=== PATIENT | male | born 1965 | race Caucasian/White ===

== ENCOUNTER 2021-04-06 09:37 | Inpatient (IN) | payer BC, OTHER ==
[~2021-04-06] VITALS: Ht 175.3 cm; Wt 127.6 kg
[2021-04-06] MEDS ORDERED: IPRATRPIUM/ALBUTEROL 0.5/2.5MG 3 ML NEBU. NEB ONE ×2 (10:00→16:30)
[2021-04-06] MEDS ORDERED: methylPREDNISolone SOD SUCC PF 125 MG/2 ML VIAL. IV ONE (10:00)
[2021-04-06 10:31] LABS: CALCIUM 7.7 mg/dL (8.5-10.1); CREATININE 1.4 mg/dL (0.7-1.3); GFR 52.8; POTASSIUM 4.9 mmol/L (3.5-5.1)
--- NOTE | 2021-04-06 10:32 | RAD ---
EXAM: Chest, single view. HISTORY: Shortness of breath. Cough. COMPARISON: None. FINDINGS: A frontal view of the chest is obtained. There is multifocal interstitial infiltrate. There are suspected trace pleural effusions. There is no pneumothorax. The heart is normal in size. IMPRESSION: Multifocal interstitial infiltrate and suspected trace pleural effusions. Electronically signed by: Liya Lizarraga MD (04/06/2021 10:30 AM) [id number]
[2021-04-06 10:33] LABS: BASO % 0 % (0-3); EOS % 0 % (0-3); HEMATOCRIT 46.5 % (39.0-53.0); HEMOGLOBIN 15.8 g/dL (13.0-17.5); LYMPH # 0.8 x10^3/uL (1.0-4.8); LYMPH % 15 % (24-48); MEAN CORPUSCULAR HEMOGLOBIN 29 pg (25-35); MEAN CORPUSCULAR HGB CONC 34 g/dL (31-37); MEAN CORPUSCULAR VOLUME 85 fL (79-100); MONO # 0.4 x10^3/uL (0.0-1.1); MONO % 7 % (0-9); NEUT # 4.4 x10^3uL (1.8-7.7); NEUT % 78 % (31-73); PLATELET COUNT 238 x10^3/uL (140-400); RED BLOOD COUNT 5.45 x10^6/uL (4.30-5.70); RED CELL DISTRIBUTION WIDTH 14.8 % (11.5-14.5); WHITE BLOOD COUNT 5.6 x10^3/uL (4.0-11.0)
[2021-04-06 10:37] LABS: ALBUMIN/GLOBULIN RATIO 0.8 (1.0-1.7); TOTAL BILIRUBIN 0.7 mg/dL (0.2-1.0); TOTAL PROTEIN 6.8 g/dL (6.4-8.2)
--- NOTE | 2021-04-06 10:50 | PHYS DOC ---
Past History Past Surgical History: No Surgical History Alcohol Use: None Adult General Chief Complaint Chief Complaint: SHORTNESS OF BREATH HPI HPI Patient is a 55-year-old male presenting via EMS for shortness of breath. Reports onset was 9 days ago without any known inciting event, sick contacts or recent travel. Cites initial upper respiratory symptoms such as rhinorrhea and postnasal drip that turned into a cough with increased wheezing and inability to catch his breath. Went into his primary care provider's office today and was found to be at 79% on room air prompting EMS to be called and patient transferred over to our facility. States he has poor follow-up in outpatient setting with primary care, as a result he has not been there in quite years". Has no known medical issues, does not take any meds, denies smoking alcohol or illicit drug use. No known history of cardiac disease or significant family medical issues. He is unvaccinated against COVID-19 Review of Systems Review of Systems Fourteen body systems of review of systems have been reviewed. See HPI for pertinent positives and negative responses, other stewart all other systems are negative, non-pertinent or non-contributory Current Medications Current Medications Current Medications Medications (Trade) Dose Ordered Sig/Nola Start Time Stop Time Status Last Admin Dose Admin Albuterol/ Ipratropium (Duoneb) 3 ml 1X ONCE 04/06/21 10:00 04/06/21 10:01 DC 04/06/21 10:20 3 ML Methylprednisolone Sodium Succinate (SOLU-Medrol 125MG VIAL) 125 mg 1X ONCE 04/06/21 10:00 04/06/21 10:01 DC Allergies Allergies Allergies Coded Allergies Type Severity Reaction Last Updated Verified cat dander Allergy Unknown 04/06/21 Yes Physical Exam Physical Exam Constitutional: Age-appropriate in respiratory distress on arrival, appears disheveled HENT: Normocephalic, atraumatic, bilateral external ears normal, oropharynx dry, no oral exudates, nose normal. Eyes: PERRLA, EOMI, conjunctiva normal, no discharge. Neck: Normal range of motion, no tenderness, supple, no stridor. Cardiovascular: Heart rate tachycardic sinus rhythm, no murmurs rubs or gallops Lungs & Thorax: In acute respiratory distress with increased accessory muscle use of neck and abdomen noted with mild abdominal retractions, O2 saturation less than 90% on 6 L oxygen via nasal cannula Abdomen: Bowel sounds normal, soft, no tenderness, no masses, no pulsatile masses. Nonsurgical abdomen, no peritoneal signs Skin: Warm, dry, no erythema, no rash. Back: No tenderness, no CVA tenderness. Extremities: No tenderness, no cyanosis, no clubbing, ROM intact, no edema. Neurologic: Alert and oriented X 3, grossly normal motor & sensory function, no focal deficits noted. Psychologic: Anxious affect and mood Current Patient Data Vital Signs Vital Signs Date Time Temp Pulse Resp B/P (MAP) Pulse Ox O2 Delivery O2 Flow Rate FiO2 04/06/21 10:21 93 NonRebreather Mask 15.0 04/06/21 09:40 98.3 114 20 127/54 Lab Results Laboratory Tests Test 04/06/21 09:55 White Blood Count 5.6 x10^3/uL (4.0-11.0) Red Blood Count 5.45 x10^6/uL (4.30-5.70) Hemoglobin 15.8 g/dL (13.0-17.5) Hematocrit 46.5 % (39.0-53.0) Mean Corpuscular Volume 85 fL (79-100) Mean Corpuscular Hemoglobin 29 pg (25-35) Mean Corpuscular Hemoglobin Concent 34 g/dL (31-37) Red Cell Distribution Width 14.8 % (11.5-14.5) H Platelet Count 238 x10^3/uL (140-400) Neutrophils (%) (Auto) 78 % (31-73) H Lymphocytes (%) (Auto) 15 % (24-48) L Monocytes (%) (Auto) 7 % (0-9) Eosinophils (%) (Auto) 0 % (0-3) Basophils (%) (Auto) 0 % (0-3) Neutrophils # (Auto) 4.4 x10^3uL (1.8-7.7) Lymphocytes # (Auto) 0.8 x10^3/uL (1.0-4.8) L Monocytes # (Auto) 0.4 x10^3/uL (0.0-1.1) Eosinophils # (Auto) 0.0 x10^3/uL (0.0-0.7) Basophils # (Auto) 0.0 x10^3/uL (0.0-0.2) POC Venous pH 7.42 (7.32-7.42) POC Venous pCO2 35 mmHg (41-51) L POC Venous pO2 33 mmHg (20-40) Venous Blood HCO3 23 mmol/L (24-28) L POC Venous O2 Saturation (Pete) 65 % POC FiO2 80 Sodium Level 132 mmol/L (136-145) L Potassium Level 4.9 mmol/L (3.5-5.1) Chloride Level 99 mmol/L (98-107) Carbon Dioxide Level 21 mmol/L (21-32) Anion Gap 12 (6-14) Blood Urea Nitrogen 32 mg/dL (8-26) H Creatinine 1.4 mg/dL (0.7-1.3) H Estimated GFR (Cockcroft-Gault) 52.8 BUN/Creatinine Ratio 23 (6-20) H Glucose Level 111 mg/dL (70-99) H Calcium Level 7.7 mg/dL (8.5-10.1) L Total Bilirubin 0.7 mg/dL (0.2-1.0) Aspartate Amino Transferase (AST) 111 U/L (15-37) H Alanine Aminotransferase (ALT) 65 U/L (16-63) H Alkaline Phosphatase 55 U/L (46-116) Troponin I Quantitative < 0.017 ng/mL (0-0.055) Total Protein 6.8 g/dL (6.4-8.2) Albumin 3.0 g/dL (3.4-5.0) L Albumin/Globulin Ratio 0.8 (1.0-1.7) L EKG EKG EKG ordered and interpreted by myself 1010 hrs. as sinus tachycardia at 115 bpm, unremarkable intervals, left axis deviation, no STEMI Radiology/Procedures Radiology/Procedures EXAM: Chest, single view. HISTORY: Shortness of breath. Cough. COMPARISON: None. FINDINGS: A frontal view of the chest is obtained. There is multifocal interstitial infiltrate. There are suspected trace pleural effusions. There is no pneumothorax. The heart is normal in size. IMPRESSION: Multifocal interstitial infiltrate and suspected trace pleural effusions. Electronically signed by: Liya Lizarraga MD (04/06/2021 10:30 AM) [id number] Heart Score C/O Chest Pain: No HEART Score for Chest Pain: HEART Score for Chest Pain Response (Comments) Value History Moderately Suspicious 1 ECG Nonspecific Repolarizatio 1 Age >45 - < 65 1 Risk Factors 1 or 2 Risk Factors 1 Troponin < Normal Limit 0 Total 4 Risk Factors: Risk Factors: DM, Current or recent (<one month) smoker, HTN, HLP, family history of CAD, obesity. Risk Scores: Risk Factors: DM, Current or recent (<one month) smoker, HTN, HLP, family h istory of CAD, obesity. Course & Med Decision Making Course & Med Decision Making Airway patent, breathing labored in no acute respiratory distress, IV access and vitals obtained concerning for tachycardia and persistent hypoxia despite supplemental oxygen via nasal cannula Patient placed on nonrebreather with immediate improvement in respiratory sy mptoms. 125 mg Solu-Medrol and DuoNeb treatment administered Comprehensive ER work-up obtained concerning for multifocal pneumonia, I am concerned as patient is unvaccinated against COVID-19 and current pandemic, patient swabbed with results pending. IV azithromycin and Rocephin administered I contacted patient's primary care provider who will also serve as hospitalist, discussed need for hospital admission and patient was excepted. Updated patient on proposed plan of care and he was amenable for admission. All questions and concerns addressed prior to admission Critical Care Time This patient required critical care. Due to the fact that the patient required a significant amount of one on one physician - patient contact time, ordering and review of studies, arranging urgent treatment with development of a management plan, evaluation of patients response to treatment with frequent reassessments, and discussions with other providers this patient required 35 minutes of critical care time. Critical care time was indicated due to the inherent instability and/or potential for instability in this patient. The critical care time that is allocated to this patient is above and beyond any time spent on any other billable procedures performed on this patient. Dragon Disclaimer Dragon Disclaimer This electronic medical record was generated, in whole or in part, using a voice recognition dictation system. Departure Departure: Impression: Primary Impression: Bilateral pneumonia Additional Impressions: Person under investigation for COVID-19 Acute respiratory distress Disposition: ADMITTED INPATIENT Admitting Physician: Ke Huizar Condition: STABLE Referrals: KE HUIZAR MD (PCP) Problem Qualifiers YUKI SWARTZ Apr 06, 2021 10:50
[2021-04-06] MEDS ORDERED: IV NORMAL SALINE 1,000ML 1,000 ML IV ONE (11:00)
[2021-04-06] MEDS ORDERED: cefTRIAXone SODIUM 1 GM VIAL ONE (11:18)
[2021-04-06] MEDS ORDERED: IV NORMAL SALINE 50ML 50 ML ONE (11:18)
[2021-04-06] MEDS ORDERED: IV NORMAL SALINE 250ML 250 ML ONE (11:19)
[2021-04-06] MEDS ORDERED: AZITHROMYCIN 500 MG VIAL. IV ONE (11:19)
[2021-04-06] MEDS ORDERED: AZITHROMYCIN 500 MG in IV NORMAL SALINE 250ML 250 ML IV ONE (11:30)
--- NOTE | 2021-04-06 12:05 | EKG ---
[address] [address] Test Date: 2021-04-06 Test Time: 10:03:17 Pat Name: DURGA CUI Department: Room: Gender: M [employer] Machine Operator: JANINA : 1965 Requested By: YUKI SWARTZ Order Number: [id number] Reading MD: Measurements Intervals [place] Rate: 115 P: 29 ME: 154 QRS: -13 QRSD: 90 T: 2 QT: 306 QTc: 425 Interpretive Statements SINUS TACHYCARDIA LEFTWARD AXIS R-S TRANSITION ZONE IN V LEADS DISPLACED TO THE LEFT OTHERWISE NORMAL ECG RI6.02 No previous ECG available for comparison
[2021-04-06 16:09] VITALS: BP 147/100
[2021-04-06] MEDS ORDERED: BUDESONIDE 0.5 MG/2 ML NEBU ONE (16:18)
[2021-04-06] MEDS ORDERED: REMDESIVIR LOAD in IV NORMAL SALINE 250ML TV IV ONE (17:15)
[2021-04-06] MEDS: DEXAMETHASONE SOD PHOS 10 MG/ML VIAL. IV SCH ×2 (18:07→23:56)
[2021-04-06] MEDS: ENOXAPARIN 40 MG/0.4 ML SYRINGE. SQ SCH (18:07)
[2021-04-06] MEDS: IV NORMAL SALINE 1,000ML 1,000 ML IV SCH (18:08)
[2021-04-06] MEDS: FLUTICASONE FUROATE 100mcg/INH ELLIPTA INHALER. INH SCH (18:10)
[2021-04-06] MEDS: PIPERACILLIN/TAZOBACTAM 3.375 GM in IV NORMAL SALINE 50ML 50 ML IV SCH ×2 (18:12→23:57)
[2021-04-06 19:25] VITALS: BP 139/92
[2021-04-06] MEDS ORDERED: BUDESONIDE 0.5 MG/2 ML NEBU NEB SCH (20:00)
[2021-04-06] MEDS: FAMOTIDINE 20 MG TABLET PO SCH (20:55)
[2021-04-06] MEDS: IPRATROPIUM/ALBUTEROL 20/100mcg/INH INHALER. INH SCH (20:56)
[2021-04-06 21:00] VITALS: BP 146/94
[2021-04-06 22:00] VITALS: BP 127/88
[2021-04-06 23:00] VITALS: BP 119/84
[2021-04-06 23:50] VITALS: BP 131/94
[2021-04-07] VITALS (14 sets, daily range): BP systolic 91–150; BP diastolic 62–108
[2021-04-07] MEDS: DEXAMETHASONE SOD PHOS 10 MG/ML VIAL. IV SCH ×4 (00:01→17:44)
[2021-04-07] MEDS: PIPERACILLIN/TAZOBACTAM 3.375 GM in IV NORMAL SALINE 50ML 50 ML IV SCH ×4 (00:06→18:15)
[2021-04-07] MEDS: IV NORMAL SALINE 1,000ML 1,000 ML IV SCH ×2 (06:07→19:25)
[2021-04-07 06:08] LABS: BASO % 1 % (0-3); EOS % 0 % (0-3); HEMATOCRIT 46.7 % (39.0-53.0); HEMOGLOBIN 15.7 g/dL (13.0-17.5); LYMPH # 0.8 x10^3/uL (1.0-4.8); LYMPH % 15 % (24-48); MEAN CORPUSCULAR HEMOGLOBIN 29 pg (25-35); MEAN CORPUSCULAR HGB CONC 34 g/dL (31-37); MEAN CORPUSCULAR VOLUME 86 fL (79-100); MONO # 0.4 x10^3/uL (0.0-1.1); MONO % 7 % (0-9); NEUT # 4.5 x10^3uL (1.8-7.7); NEUT % 79 % (31-73); PLATELET COUNT 270 x10^3/uL (140-400); RED BLOOD COUNT 5.43 x10^6/uL (4.30-5.70); RED CELL DISTRIBUTION WIDTH 14.9 % (11.5-14.5); WHITE BLOOD COUNT 5.8 x10^3/uL (4.0-11.0)
[2021-04-07 06:17] LABS: CALCIUM 8.1 mg/dL (8.5-10.1); CREATININE 1.4 mg/dL (0.7-1.3); GFR 52.8; POTASSIUM 4.1 mmol/L (3.5-5.1)
[2021-04-07] MEDS ORDERED: PIP/TAZO PER PHARMACY MC PRN (08:00)
[2021-04-07] MEDS: FLUTICASONE FUROATE 100mcg/INH ELLIPTA INHALER. INH SCH (08:40)
[2021-04-07] MEDS: FAMOTIDINE 20 MG TABLET PO SCH ×2 (08:40→19:37)
[2021-04-07] MEDS: AZITHROMYCIN 250 MG TABLET. PO SCH (08:40)
[2021-04-07] MEDS: IPRATROPIUM/ALBUTEROL 20/100mcg/INH INHALER. INH SCH ×4 (08:40→19:56)
[2021-04-07] MEDS: ZINC SULFATE 220 MG CAPSULE. PO SCH (08:40)
[2021-04-07] MEDS: CHOLECALCIFEROL (VITAMIN D3) 1,000 UNIT TABLET PO SCH (08:40)
[2021-04-07] MEDS: ASCORBIC ACID 500 MG TABLET PO SCH (08:41)
[2021-04-07] MEDS: LACTOBACILLUS RHAMNOSUS GG 1 CAPSULE. PO SCH ×2 (09:00→19:37)
[2021-04-07] MEDS ORDERED: ASCORBIC ACID 500 MG TABLET PO SCH (09:00)
[2021-04-07] MEDS: REMDESIVIR 100mg in NORMAL SALINE 250ML X 4 DAYS IV SCH (17:43)
[2021-04-07] MEDS: ENOXAPARIN 40 MG/0.4 ML SYRINGE. SQ SCH (17:44)
--- NOTE | 2021-04-07 23:39 | PN ---
SUBJECTIVE: Acute respiratory failure secondary to COVID-19. The patient has respiratory failure. The patient was noted to be intubated, refuses to use the BiPAP. In any case, the patient is a little bit better. Says he feels a little bit better, but he still entire needs. OBJECTIVE: VITAL SIGNS: Blood pressure 135/76, respiratory rate 27, pulse 80, afebrile. He is on 15 liters with rebreather at around anywhere from 96-89%. The patient is in the ICU in critical condition. GENERAL: The patient seems a little bit more alert than he was yesterday. LUNGS: Diminished throughout, poor movement of air, but somewhat better. CARDIOVASCULAR: Regular sinus rhythm. ABDOMEN: Soft, nontender, no rebound or guarding. Positive bowel sounds. No hepatosplenomegaly noted. EXTREMITIES: No clubbing, cyanosis, nor edema. NEUROLOGIC: The patient is alert and oriented. LABORATORY DATA: White count remains basically stable as does his electrolytes. BUN and creatinine 38 and 1.4, glucose 159. Albumin 3. He is positive for COVID. A repeat chest x-ray in the morning to make further evaluation on him at that time. IMPRESSION: Acute respiratory failure secondary to COVID-19 bilateral pneumonia. PLAN: Continue to monitor the patient accordingly here in the ICU with critical care time as noted above. IVONE DR: Lilo TID: [id number]
[2021-04-08] VITALS (11 sets, daily range): BP systolic 109–137; BP diastolic 60–95
[2021-04-08] MEDS: DEXAMETHASONE SOD PHOS 10 MG/ML VIAL. IV SCH ×3 (05:10→17:04)
[2021-04-08] MEDS: PIPERACILLIN/TAZOBACTAM 3.375 GM in IV NORMAL SALINE 50ML 50 ML IV SCH ×3 (05:10→17:11)
[2021-04-08] MEDS ORDERED: ALBUTEROL SULFATE 2.5 MG/3 ML NEBU. NEB PRN (07:45)
[2021-04-08] MEDS: IPRATROPIUM/ALBUTEROL 20/100mcg/INH INHALER. INH SCH ×4 (08:00→20:00)
[2021-04-08] MEDS ORDERED: FUROSEMIDE 20 MG/2 ML VIAL IVP ONE (09:45)
[2021-04-08] MEDS ORDERED: MORPHINE SULFATE 2 MG/ML DISP.SYRIN. IV PRN (09:45)
[2021-04-08] MEDS ORDERED: IPRATRPIUM/ALBUTEROL 0.5/2.5MG 3 ML NEBU. ONE (10:03)
[2021-04-08 10:12] LABS: BGAS PH 7.43 (7.35-7.46)
[2021-04-08] MEDS: BUDESONIDE 0.5 MG/2 ML NEBU NEB SCH ×3 (10:39→20:20)
[2021-04-08] MEDS: ASCORBIC ACID 500 MG TABLET PO SCH (11:10)
[2021-04-08] MEDS: AZITHROMYCIN 250 MG TABLET. PO SCH (11:10)
[2021-04-08] MEDS: ZINC SULFATE 220 MG CAPSULE. PO SCH (11:10)
[2021-04-08] MEDS: CHOLECALCIFEROL (VITAMIN D3) 1,000 UNIT TABLET PO SCH (11:11)
[2021-04-08] MEDS: FAMOTIDINE 20 MG TABLET PO SCH (11:11)
[2021-04-08] MEDS: LACTOBACILLUS RHAMNOSUS GG 1 CAPSULE. PO SCH (11:11)
--- NOTE | 2021-04-08 13:26 | RAD ---
EXAM: Chest, single view. HISTORY: Hypoxia. COMPARISON: 04/06/2021 FINDINGS: A frontal view of the chest is obtained. There is stable multifocal right upper and lower l obe and left lower lobe infiltrate. No significant pleural effusion is seen. There is no pneumothorax . There is a stable cardiac silhouette. IMPRESSION: Stable multifocal infiltrate. Electronically signed by: Liya Lizarraga MD (04/08/2021 1:24 PM) [id number]
[2021-04-08] MEDS: FLUTICASONE FUROATE 100mcg/INH ELLIPTA INHALER. INH SCH (13:47)
[2021-04-08] MEDS ORDERED: LORazepam 0.5 MG TABLET PO PRN (16:45)
[2021-04-08] MEDS ORDERED: LORazepam 1 MG TABLET PO PRN (16:45)
[2021-04-08] MEDS: ENOXAPARIN 40 MG/0.4 ML SYRINGE. SQ SCH (17:04)
[2021-04-08] MEDS: REMDESIVIR 100mg in NORMAL SALINE 250ML X 4 DAYS IV SCH (17:11)
--- NOTE | 2021-04-14 21:35 | DS ---
DATE OF DISCHARGE: 04/08/2021 HOSPITAL COURSE: This 55-year-old male, not vaccinated, came down with acute respiratory failure with COVID-19. The patient was admitted to the hospital and placed on remdesivir, Decadron, antibiotic therapy protocol, that pretty much has been successful. The patient was up and down in his recovery. The patient was attempted to be transferred down to [place]; however, because of the local situations with the patients, all hospitals were on diversion and unable to take this patient at first when first requested him to be transferred. He continued to have some problems. He was placed on BiPAP, but obviously had difficulty with that as well and finally we got a room down at [place] in the ICU for a ventilating attempt. Blood pressure 137/92, respiratory rate 28, pulse 78, afebrile. The patient is alert and oriented. Chest x-ray showed multifocal interstitial infiltrates throughout the lungs. The patient otherwise was stable, but again because of the lack of consistent progress, he may progress and then he got relapsed somewhat, although last blood pressure was 137/92, respiratory rate 28, pulse 78, afebrile, oxygen saturation with BiPAP at anywhere from 95-90%. The patient was transferred via EMS to [place] for hospice care of a ventilated patient. IMPRESSION: Acute respiratory failure secondary to COVID-19 pneumonia, sepsis, obesity, moderate protein malnutrition, chronic kidney disease stage IIIA, hyperglycemia, hyponatremia, elevated liver enzymes, probably secondary to the COVID infection. COREEN DR: Lilo TID: [id number]
== END 2021-04-08 20:35 | disposition short-term general hospital (02) | DRG 871 ==
LOC: ER 09:37 → ICU 11:13 → ER 14:45
PROVIDERS: ADMIT Family Medicine; ATTEND Family Medicine
PROC: XW033E5 Introduction of Remdesivir Anti-infective into Peripheral Vein, Percutaneous Approach, New Technology Group 5 (ICD-10-PCS; principal; 2021-04-06)
PROC: 5A0935A Assistance with Respiratory Ventilation, Less than 24 Consecutive Hours, High Flow/Velocity Cannula (ICD-10-PCS; 2021-04-06)
PROC: 5A0935A Assistance with Respiratory Ventilation, Less than 24 Consecutive Hours, High Flow/Velocity Cannula (ICD-10-PCS; 2021-04-07)
PROC: 5A09357 Assistance with Respiratory Ventilation, Less than 24 Consecutive Hours, Continuous Positive Airway Pressure (ICD-10-PCS; 2021-04-08)
DX: A41.89 Other specified sepsis (principal); U07.1 COVID-19; J12.82 Pneumonia due to coronavirus disease 2019; J96.00 Acute respiratory failure, unspecified whether with hypoxia or hypercapnia; E87.1 Hypo-osmolality and hyponatremia; E44.0 Moderate protein-calorie malnutrition; Z68.41 Body mass index [BMI] 40.0-44.9, adult; Z88.8 Allergy status to other drugs, medicaments and biological substances; E66.9 Obesity, unspecified; N18.31 Chronic kidney disease, stage 3a; Z51.5 Encounter for palliative care
CPT/HCPCS: 36415; 36600; 71045; 80048; 80053; 82803; 83880; 84484; 85025; 85379; 87426; 93005; 94640; 94660; 96365; 96367; 96375; J0456; J0696; J1100; J1650; J2060; J2270; J2543; J2930; J7050; U0003; 99291-25; J7030; J7613